=== PATIENT | male | born 1945 | race Hispanic/Latino ===

== ENCOUNTER 2016-09-25 07:49 | Emergency (ER) | payer MEDICARE, BC ==
[2016-09-25] MEDS ORDERED: Sodium Chloride 0.9% 500 ML IV ONE ×2 (08:13→08:31)
[2016-09-25 08:20] VITALS: BP 108/67; PULSE 72; RESP 18; TEMP 97.6; O2SAT 96
--- NOTE | 2016-09-25 08:29 | C.PDOC ---
Time Seen by Provider: 09/25/16 08:03 Chief Complaint (Nursing): Abnormal Skin Integrity Past Medical History Vital Signs: Last Vital Signs Temp 97.6 F 09/25/16 07:55 Pulse 72 09/25/16 07:55 Resp 18 09/25/16 07:55 BP 108/67 09/25/16 07:55 Pulse Ox 96 09/25/16 07:55 - Medical History PMH: Benign Prostatic Hyperplasia, Hypercholesterolemia Family History: States: Unknown Family Hx - Social History Hx Tobacco Use: No Hx Alcohol Use: No Hx Substance Use: No - Immunization History Hx Tetanus Toxoid Vaccination: No Hx Influenza Vaccination: No Hx Pneumococcal Vaccination: No ED Course And Treatment O2 Sat by Pulse Oximetry: 96
[2016-09-25 08:54] LABS: BASO # 0.1 K/uL (0.0-0.2); EOS # 0.2 K/uL (0.0-0.7); EOS % 4.2 % (0.0-4.0); HEMATOCRIT 39.4 % (35.0-51.0); LYMPH # 1.7 K/uL (1.0-4.3); LYMPH % 31.7 % (20.0-40.0); MEAN CELL VOLUME 89.5 fL (80.0-94.0); MEAN CORPUSCULAR HEMOGLOBIN 29.7 pg (27.0-31.0); MEAN CORPUSCULAR HGB CONC 33.2 g/dL (33.0-37.0); MONO # 0.7 K/uL (0.0-0.8); MONO % 12.1 % (0.0-10.0); RED CELL DISTRIBUTION WIDTH 14.3 % (11.5-14.5); WHITE BLOOD COUNT 5.4 K/uL (4.8-10.8)
--- NOTE | 2016-09-25 08:55 | C.PDOC ---
History Of Present Illness Patient is a 71 y/o male that presents to the ED for evaluation of fever, and chills for the last 4 days. Patient also states he noticed redness to his right knee since yesterday. Notes working in his yard 4 days ago. Denies seeing any bugs or ticks in the yard while working that day. Otherwise, denies any itchiness, swelling, weakness, numbness, or any other associated symptoms at this time. Time Seen by Provider: 09/25/16 08:03 Chief Complaint (Nursing): Abnormal Skin Integrity History Per: Patient History/Exam Limitations: no limitations Onset/Duration Of Symptoms: Days (4) Current Symptoms Are (Timing): Still Present Severity: None Pain Scale Rating Of: 0 Recent travel outside of the [place]: No Additional History Per: Patient Past Medical History Reviewed: Historical Data, Nursing Documentation, Vital Signs Vital Signs: Last Vital Signs Temp 97.6 F 09/25/16 07:55 Pulse 72 09/25/16 07:55 Resp 18 09/25/16 07:55 BP 108/67 09/25/16 07:55 Pulse Ox 96 09/25/16 14:12 - Medical History PMH: Benign Prostatic Hyperplasia, Hypercholesterolemia Family History: States: Unknown Family Hx - Social History Hx Tobacco Use: No Hx Alcohol Use: No Hx Substance Use: No - Immunization History Hx Tetanus Toxoid Vaccination: No Hx Influenza Vaccination: No Hx Pneumococcal Vaccination: No Review Of Systems Except As Marked, All Systems Reviewed And Found Negative. Constitutional: Positive for: Fever, Chills Cardiovascular: Negative for: Chest Pain, Palpitations Respiratory: Negative for: Cough, Shortness of Breath Musculoskeletal: Negative for: Leg Pain Skin: Positive for: Other (redness to right knee) Neurological: Negative for: Weakness, Numbness, Headache Physical Exam - Physical Exam Appears: Non-toxic, No Acute Distress Skin: Warm, Dry, Other (6cm area of erythema to right knee, no increased warmth , discharge, fluctuance, or swelling, no central clearing) Head: Atraumatic, Normacephalic Eye(s): bilateral: Normal Inspection, EOMI Nose: Normal Oral Mucosa: Moist Neck: Normal ROM, Supple Chest: Symmetrical Cardiovascular: Rhythm Regular Respiratory: Normal Breath Sounds Gastrointestinal/Abdominal: Soft, No Tenderness Extremity: Normal ROM, No Tenderness, No Calf Tenderness, Capillary Refill (< 2 sec.), No Deformity, No Swelling Pulses: Left Dorsalis Pedis: Normal, Right Dorsalis Pedis: Normal Neurological/Psych: Oriented x3, Normal Speech, Normal Motor, Normal Sensation ED Course And Treatment - Laboratory Results Result Diagrams: 09/25/16 08:48 09/25/16 08:48 O2 Sat by Pulse Oximetry: 96 (on RA) Pulse Ox Interpretation: Normal Progress Note: Labs ordered and reviewed. Patient was given IV fluids, and Doxycycline Hyclate 100mg PO. Patient is being discharged home, with one dose of doxy for tonight and is instructed to follow up with PMD in 2 days for wound check, or return to ED for worsening of symptoms. CAse discussed with Dr Navarrete, agreed upon plan and treatment. Disposition - Disposition Disposition: HOME/ ROUTINE Disposition Time: 08:53 Condition: STABLE Additional Instructions: Watch for signs of increased infection including redness, swelling and fever. Wound check in 2 days. 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 - Scribe Statement The provider has reviewed the documentation as recorded by the Jeffreyibmemo Gonzalez All medical record entries made by the Isiah were at my direction and personally dictated by me. I have reviewed the chart and agree that the record accurately reflects my personal performance of the history, physical exam, medical decision making, and the department course for this patient. I have also personally directed, reviewed, and agree with the discharge instructions and disposition.
[2016-09-25 09:26] LABS: CHLORIDE 104 mmol/L (98-107); POTASSIUM 3.9 mmol/L (3.6-5.2); SODIUM 143 mmol/L (132-148)
[2016-09-25 09:28] LABS: ALB/GLOB RATIO 1.4 (1.0-2.1); ALKALINE PHOSPHATASE 123 U/L (38-126); AST/SGOT 89 U/L (17-59); BILIRUBIN,TOTAL 0.8 mg/dL (0.2-1.3); CARBON DIOXIDE 29 mmol/L (22-30); GFR AFRICAN-AMERICAN > 60; TOTAL PROTEIN 6.9 g/dL (6.3-8.3)
[2016-09-25 09:29] LABS: ALT/SGPT 108 U/L (21-72); BLOOD UREA NITROGEN 16 mg/dL (9-20); CALCIUM 9.9 mg/dl (8.6-10.4); GLUCOSE,RANDOM 98 mg/dL (75-110)
[2016-09-26 17:44] LABS: LYME IGM NEGATIVE (NEGATIVE)
[2016-09-26 17:49] LABS: LYME IGG NEGATIVE (NEGATIVE)
== END 2016-09-25 09:51 | disposition home or self-care (01) ==
LOC: C.ER 07:49
DX: L03.115 Cellulitis of right lower limb (principal)
CPT/HCPCS: 80053; 85025; 86618; 96360; 99283; J7040

== ENCOUNTER 2018-08-15 07:49 | Emergency (ER) | payer MEDICARE, BC ==
[2018-08-15 07:55] VITALS: BMI 23.6
[2018-08-15 07:58] VITALS: BP 136/83; PULSE 96; RESP 18; TEMP 97.6; O2SAT 97
--- NOTE | 2018-08-15 09:21 | C.PDOC ---
History Of Present Illness 73 y/o male presents to the ER for head injury which occurred while patient was jogging in the morning today.Patient states that he tripped over log and he planted his face on the ground. Patient has laceration over left eye. Denies having LOC, dizziness,CP,SOB, nausea, and vomiting.Of note, patient is UTD with tetanus vaccination. Time Seen by Provider: 08/15/18 08:07 Chief Complaint (Nursing): Abnormal Skin Integrity History Per: Patient History/Exam Limitations: no limitations Onset/Duration Of Symptoms: Hrs Current Symptoms Are (Timing): Still Present Quality Of Symptoms: Painful, Swollen Severity: Moderate Pain Scale Rating Of: 3 - Animal Bite Reports Animal's Immunization Status: UTD Past Medical History Reviewed: Historical Data, Nursing Documentation, Vital Signs Vital Signs: Last Vital Signs Temp 97.6 F 08/15/18 07:55 Pulse 96 H 08/15/18 07:55 Resp 18 08/15/18 07:55 BP 136/83 08/15/18 07:55 Pulse Ox 97 08/15/18 07:55 Primary Care Provider: Dre Huerta - Medical History PMH: Benign Prostatic Hyperplasia, Hypercholesterolemia Surgical History: No Surg Hx Family History: States: No Known Family Hx - Social History Hx Tobacco Use: No Hx Alcohol Use: No Hx Substance Use: No - Immunization History Hx Tetanus Toxoid Vaccination: No Hx Influenza Vaccination: No Hx Pneumococcal Vaccination: No Review Of Systems Except As Marked, All Systems Reviewed And Found Negative. Constitutional: Negative for: Fever, Chills Cardiovascular: Negative for: Chest Pain Respiratory: Negative for: Shortness of Breath Gastrointestinal: Negative for: Nausea, Vomiting, Abdominal Pain Skin: Positive for: Other (head injury) Neurological: Negative for: Dizziness Physical Exam - Physical Exam Appears: Well, Non-toxic, No Acute Distress Skin: Normal Color, Warm, Dry Head: Normacephalic, Tenderness (tenderness over left zygomatic arch), Swelling (swelling to left zygomatic arch), Laceration (laceration on left eyebrow) Eye(s): bilateral: PERRL, EOMI Nose: Normal Oral Mucosa: Moist Tongue: Normal Appearing Lips: Normal Appearing Teeth: Normal Dentition Neck: Normal ROM, No Midline Cervical Tenderness, Supple Chest: Symmetrical Cardiovascular: Rhythm Regular Respiratory: Normal Breath Sounds, No Rales, No Rhonchi, No Wheezing Extremity: Bilateral: Atraumatic Neurological/Psych: Oriented x3, Normal Speech Gait: Steady ED Course And Treatment O2 Sat by Pulse Oximetry: 97 (RA) Pulse Ox Interpretation: Normal - CT Scan/US No standard instances Other Rad Studies (CT/US): Read By Radiologist, Radiology Report Reviewed CT/US Interpretation: FINDINGS: NASAL BONES: There is an age indeterminate but likely chronic fracture deformity in the right anterior nasal bone. ORBITS: The globes are symmetric. No evidence for acute orbital fracture. No evidence of orbital hematoma or lens dislocation. There is a small superficial hematoma in the left inferior and lateral orbital soft tissues. PARANASAL SINUSES/ MASTOIDS: There is mild mucosal thickening in the ethmoid air cells and maxillary sinuses. The remaining included paranasal sinuses are predominantly clear. MAXILLA: No acute maxillofacial fracture. There is mild left facial soft tissue swelling. MANDIBLE/ TEMPOROMANDIBULAR JOINTS: No acute fracture or dislocation. 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 SKULL BASE: Unremarkable. TEMPORAL BONES: Middle ears and mastoid grossly unremarkable. OTHER FINDINGS: None. IMPRESSION: No acute displaced nasal bone, orbital or maxillofacial fracture. Small superficial hematoma in the left inferior and lateral orbital soft tissues and, and mild left facial and soft tissue swelling. Age indeterminate but likely chronic fracture deformity in the right anterior nasal bone. FINDINGS: HEMORRHAGE: No intracranial hemorrhage. BRAIN: Torres-white matter differentiation is preserved. There is no mass, mass effect or abnormal extra- axial fluid collection. There is no territorial infarction. The midline sagittal structures are normal. VENTRICLES: There is mild age-related global parenchymal volume loss and proportionate enlargement of the ventricles and cortical sulci. CALVARIUM: There is no calvarial fracture or extracranial soft tissue swelling. PARANASAL SINUSES: There is moderate polypoid mucosal thickening in the right posterior ethmoid air cells. The remaining included paranasal sinuses are predominantly clear. MASTOID AIR CELLS: Predominantly clear. OTHER FINDINGS: None. IMPRESSION: No acute intracranial abnormality. Progress Note: CT-Head and CT-Orbits/Facials ordered. Reassessment Condition: Improved Procedure: Wound Repair - Time Out Time Out: Side verified - Consent Obtained Consent obtained: Verbal - Performed by Performed by: Mid-level Provider - Indications Indication(s):: Laceration - Location Location:: Left, Eyebrow Depth:: Subcutaneous fascia - Anesthetic Technique Anesthetic Technique: Local Local/Regional Anesthetic:: Lidocaine 1% - Wound Examination Wound Examination:: Contaminated - Complexity Complexity:: Simple (one layer) - Wound repair method Sutures:: # (3), Size (6-0), Type (nylon), Technique (interrupted) - Patient tolerated procedure Patient Tolerated Procedure:: Well Disposition Counseled Patient/Family Regarding: Studies Performed, Diagnosis, Need For Followup - Disposition Disposition: HOME/ ROUTINE Disposition Time: 12:00 Condition: GOOD Additional Instructions: Follow up with your PMD for further evaluation Tylenol or motrin as needed Ice pack to affected area Sleep with head elevated Suture removal in 5 days Instructions: Laceration Repair, Minor Head Injury Forms: [employer] (Martiniquais) - POA Present On Arrival: None - Clinical Impression Clinical Impression: Laceration, Head injury - 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 - Scribe Statement The provider has reviewed the documentation as recorded by the Isiha Angelo Provider Attestation All medical record entries made by the Jeffreyibe were at my direction and personally dictated by me. I have reviewed the chart and agree that the record accurately reflects my personal performance of the history, physical exam, medical decision making, and the department course for this patient. I have also personally directed, reviewed, and agree with the discharge instructions and disposition.
--- NOTE | 2018-08-15 09:29 | CT ---
Date of service: 08/15/2018 PROCEDURE: CT HEAD WITHOUT CONTRAST. HISTORY: Trauma COMPARISON: None available. TECHNIQUE: Axial computed tomography images were obtained through the head/brain without intravenous contrast. Radiation dose: Total exam DLP = 903.33 mGy-cm. This CT exam was performed using one or more of the following dose reduction techniques: Automated exposure control, adjustment of the mA and/or kV according to patient size, and/or use of iterative reconstruction technique. FINDINGS: HEMORRHAGE: No intracranial hemorrhage. BRAIN: Torres-white matter differentiation is preserved. There is no mass, mass effect or abnormal extra-axial fluid collection. There is no territorial infarction. The midline sagittal structures are normal. VENTRICLES: There is mild age-related global parenchymal volume loss and proportionate enlargement of the ventricles and cortical sulci. CALVARIUM: There is no calvarial fracture or extracranial soft tissue swelling. PARANASAL SINUSES: There is moderate polypoid mucosal thickening in the right posterior ethmoid air cells. The remaining included paranasal sinuses are predominantly clear. MASTOID AIR CELLS: Predominantly clear. OTHER FINDINGS: None. IMPRESSION: No acute intracranial abnormality.
--- NOTE | 2018-08-15 09:45 | CT ---
Date of service: 08/15/2018 PROCEDURE: CT MAXILLOFACIAL BONES WITHOUT CONTRAST HISTORY: Trauma COMPARISON: None available. TECHNIQUE: Contiguous axial CT images of the maxillofacial bones were obtained. Coronal and sagittal reformats were generated. Radiation dose: Total exam DLP = 846.84 mGy-cm. This CT exam was performed using one or more of the following dose reduction techniques: Automated exposure control, adjustment of the mA and/or kV according to patient size, and/or use of iterative reconstruction technique. FINDINGS: NASAL BONES: There is an age indeterminate but likely chronic fracture deformity in the right anterior nasal bone. ORBITS: The globes are symmetric. No evidence for acute orbital fracture. No evidence of orbital hematoma or lens dislocation. There is a small superficial hematoma in the left inferior and lateral orbital soft tissues. PARANASAL SINUSES/ MASTOIDS: There is mild mucosal thickening in the ethmoid air cells and maxillary sinuses. The remaining included paranasal sinuses are predominantly clear. MAXILLA: No acute maxillofacial fracture. There is mild left facial soft tissue swelling. MANDIBLE/ TEMPOROMANDIBULAR JOINTS: No acute fracture or dislocation. 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 SKULL BASE: Unremarkable. TEMPORAL BONES: Middle ears and mastoid grossly unremarkable. OTHER FINDINGS: None. IMPRESSION: No acute displaced nasal bone, orbital or maxillofacial fracture. Small superficial hematoma in the left inferior and lateral orbital soft tissues and, and mild left facial and soft tissue swelling. Age indeterminate but likely chronic fracture deformity in the right anterior nasal bone.
[2018-08-15] MEDS ORDERED: Lidocaine 2% w Epi 1:100,000 Inj IJ ONE (10:22)
== END 2018-08-15 11:03 | disposition home or self-care (01) ==
LOC: C.ER 07:49
DX: S01.112A Laceration without foreign body of left eyelid and periocular area, initial encounter (principal); W01.0XXA Fall on same level from slipping, tripping and stumbling without subsequent striking against object, initial encounter; Y93.89 Activity, other specified